=== PATIENT | male | born 2000 | race Caucasian/White ===

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

== ENCOUNTER 2022-06-22 22:15 | Emergency (ER) | payer OTHER ==
[~2022-06-22] VITALS: Ht 177.8 cm; Wt 108.9 kg
[~2022-06-22 22:15] MED LIST changes: +Cephalexin500 MG PO
== END 2022-06-22 23:51 | disposition home or self-care (01) ==
LOC: ER 22:15
DX: R07.81 Pleurodynia (principal); X50.1XXA Overexertion from prolonged static or awkward postures, initial encounter
CPT/HCPCS: 71046; 71100